=== PATIENT | female | born 1985 | race Caucasian/White ===

== ENCOUNTER → 2019-09-03 | Outpatient (CLI) | payer OTHER ==
[~2019-09-03] MED LIST: AVONEX; AZITHROMYCIN 2250 MG PO; BENADRYL25 MG; BETASERON0.3 MG/SY1; CIPROFLOXACIN500 M1 PO; COLACE 100 MG100 MG PO; DARVOCET-N 1001 EACH PO; DOXYCYCLINE 10100 MG PO; HYDROCODON-ACE1 EACH; KEFLEX250 MG PO; NAPROSYN500 MG PO; NORCO 5-325 TA1 EACH PO; ORTHO EVRA PAT1 EACH; ORTHO EVRA PAT1 EACH TD; PREDNISONE 10 M10 M1 PO; PRENATAL PO; PROAIR HFA8.5 GM; PROAIR HFA8.5 GM IH; PYRIDIUM200 MG PO; ROBAXIN 750 MG750 M1 PO; TRAMADOL 50 MG50 MG PO; TUSSIONEX PENN473 ML PO
== END ==
LOC: SJCVCIMAG 10:00
DX: R06.00 Dyspnea, unspecified (principal); J45.909 Unspecified asthma, uncomplicated; Z87.891 Personal history of nicotine dependence